=== PATIENT | male | born 1985 | race Caucasian/White ===

== ENCOUNTER 2018-03-04 16:38 | Emergency (ER) | payer OTHER ==
[~2018-03-04] VITALS: Ht 188 cm; Wt 110.8 kg
[2018-03-04] MEDS ORDERED: AUGMENTIN875TAB PO (18:01)
[2018-03-04] MEDS ORDERED: MOTRIN400 MG PO (18:01)
[2018-03-04 18:06] VITALS: BP 145/92
== END 2018-03-04 18:10 | disposition home or self-care (01) | DRG 159 ==
LOC: ED 16:38
DX: K08.89 Other specified disorders of teeth and supporting structures (principal)

== ENCOUNTER 2018-10-25 11:11 | Emergency (ER) | payer OTHER ==
[~2018-10-25] VITALS: Ht 188 cm; Wt 114.0 kg
[~2018-10-25 11:11] MED LIST: AUGMENTIN875TAB PO; MOTRIN400 MG PO
[2018-10-25 12:15] LABS: HEMATOCRIT 47.8 % (39.0-50.0); HEMOGLOBIN 16.4 g/dl (14.0-18.0); IMMATURE GRANULOCYTES 0.3 % (0.0-5.0); MEAN CELL VOLUME 85.4 fL CALC (80.0-100.0); MEAN CORPUSCULAR HGB 29.3 pG CALC (26.0-32.0); MEAN CORPUSCULAR HGB CONC 34.3 g/L CALC (32.0-36.0); NEUT# 11.97 thou/uL (1.82-7.42); RED BLOOD COUNT 5.6 mill/uL (4.70-6.10); RED CELL DISTRI WIDTH 12.9 % (11.5-15.5)
[2018-10-25 12:36] LABS: ALBUMIN 4.8 g/dL (3.2-5.0); ALKALINE PHOSPHATASE 84 u/l (38-126); ANION GAP 17 (6-22 (CALC)); BILIRUBIN, TOTAL 1.3 mg/dL (0.0-1.4); BUN 13 mg/dL (9-20); BUN/CREATININE RATIO 18 (12-20 (CALC)); CARBON DIOXIDE 25 mmol/l (22-30); CHLORIDE 105 mmol/l (95-108); CREATININE 0.8 mg/dL (0.7-1.3); GFR > 60 ML/MIN (>=60 (CALC)); GFR FOR AFR.AMER. > 60 ML/MIN (>=60 (CALC)); POTASSIUM 4.2 mmol/l (3.5-5.1); SGOT/AST 35 u/l (17-59); SODIUM 143 mmol/l (137-146); TOTAL PROTEIN 8.4 g/dL (6.3-8.2)
[2018-10-25] MEDS ORDERED: BENTYL10 MG PO (13:52)
[2018-10-25] MEDS ORDERED: ONDANSETRON4 MG PO (13:52)
[2018-10-25 14:02] VITALS: BP 123/74
== END 2018-10-25 14:15 | disposition home or self-care (01) | DRG 392 ==
LOC: ED 11:11
PROVIDERS: Emergency Medicine
DX: K52.9 Noninfective gastroenteritis and colitis, unspecified (principal)